=== PATIENT | female | born 1995 | race Two or more races ===

== ENCOUNTER 2024-10-17 15:26 | Emergency (ER) | payer OTHER ==
[~2024-10-17] VITALS: Ht 152.4 cm; Wt 68.0 kg
[~2024-10-17 15:26] MED LIST: NON
[2024-10-17] MEDS ORDERED: SYSTANE BALANCE10 ML OP (17:22)
== END 2024-10-17 17:39 | disposition home or self-care (01) ==
LOC: ER 15:27
DX: T26.51XA Corrosion of right eyelid and periocular area, initial encounter (principal); T54.91XA Toxic effect of unspecified corrosive substance, accidental (unintentional), initial encounter; Y93.E9 Activity, other interior property and clothing maintenance; Y92.018 Other place in single-family (private) house as the place of occurrence of the external cause; Z91.041 Radiographic dye allergy status; Z91.09 Other allergy status, other than to drugs and biological substances